=== PATIENT | female | born 1960 | race American Indian/Alaskan Native ===

== ENCOUNTER → 2018-08-19 | Outpatient (CLI) | payer OTHER ==
--- NOTE | 2018-08-19 15:45 | RADIOLOGY IMAGING REPORT ---
FACILITY: [facility] - [place] PATIENT NAME: Denny Edwards : 1960 MR: [id number] V: [id number] EXAM DATE: ORDERING PHYSICIAN: MAK PEARL TECHNOLOGIST: Location: [facility] [place] Patient: Denny Edwards : 1960 Visit/Account:[id number] Date of Sevice: 08/19/2018 2 VIEWS CHEST INDICATION: Rheumatoid arthritis. COMPARISON: None available FINDINGS: Heart size within normal limits. Calcifications within the aortic knob. There is no focal infiltrate or lobar consolidation. Mild nonspecific bronchial wall thickening. L inear scarring within the right midlung. Mild basilar atelectasis. There is no pneumothorax or pleural effusion. IMPRESSION: 1. No acute cardiopulmonary process. 2. Mild nonspecific bronchial wall thickening. Report Dictated By: Ruddy Beltran MD at 08/19/2018 3:41 PM Report E-Signed By: Ruddy Beltran MD at 08/19/2018 3:41 PM WSN:[email or web address]
[2018-08-19 15:48] LABS: PLATELET COUNT, AUTOMATED 369 K/uL (150-450)
--- NOTE | 2018-08-19 16:16 | RADIOLOGY IMAGING REPORT ---
FACILITY: [facility] - [place] PATIENT NAME: Denny Edwards : 1960 MR: [id number] V: [id number] EXAM DATE: ORDERING PHYSICIAN: MAK PEARL TECHNOLOGIST: Location: [facility] Patient: Denny Edwards : 1960 Visit/Account:[id number] Date of Sevice: 08/19/2018 Study: FOOT 2 VIEW BILATERAL Indication: Rheumatoid arthritis Comparison study: None available Findings: AP and lateral views of both feet demonstrates the presence of subluxation of the first sec ond and third metatarsal-phalangeal joints of the right foot. There is no evidence of acute fracture. There is no evidence of lytic or blastic bony lesions. There is no evidence of subluxation of the metatarsophalangeal joints of the left foot. The visualized soft tissues are unremarkable. There is no evidence of erosive arthropathy. IMPRESSION: Subluxation of the first second and third right sided metatarsal phalangeal joints, other hankins unremarkable. Report Dictated By: Aidan Torrez at 08/19/2018 4:10 PM Report E-Signed By: Aidan Torrez at 08/19/2018 4:11 PM WSN:[id number]
--- NOTE | 2018-08-19 16:17 | RADIOLOGY IMAGING REPORT ---
FACILITY: PATIENT NAME: Denny Edwards : 1960 MR: [id number] V: [id number] EXAM DATE: ORDERING PHYSICIAN: MAK PEARL TECHNOLOGIST: Location: [facility] Patient: Denny Edwards : 1960 Visit/Account:[id number] Date of Sevice: 08/19/2018 Study: HAND 1 OR 2 VIEW BILATERAL Indication: Rheumatoid arthritis Comparison study: None available Findings: AP and lateral views of both the left and right hands demonstrates no evidence of acute bon y abnormality within either hand. There is no evidence of significant arthropathy within either hand. The visualized soft tissues are unremarkable. There is no evidence of lytic or blastic bony lesions. IMPRESSION: Unremarkable exam Report Dictated By: Aidan Torrez at 08/19/2018 4:12 PM Report E-Signed By: Aidan Torrez at 08/19/2018 4:12 PM WSN:[id number]
== END ==
LOC: RAD 15:00
PROVIDERS: ATTEND Physician Assistant
DX: M79.641 Pain in right hand (principal); M79.671 Pain in right foot; R05 Cough; Z79.899 Other long term (current) drug therapy; M06.9 Rheumatoid arthritis, unspecified
CPT/HCPCS: 36415; 71046; 82565; 84450; 85025; 85651; 86803; 87340

== ENCOUNTER → 2018-09-27 | Outpatient (CLI) | payer OTHER ==
[2018-09-27 14:44] LABS: PLATELET COUNT, AUTOMATED 412 K/uL (150-450)
== END ==
LOC: LAB 13:59
PROVIDERS: ATTEND Physician Assistant
DX: Z79.899 Other long term (current) drug therapy (principal); M06.9 Rheumatoid arthritis, unspecified
CPT/HCPCS: 36415; 82565; 84450; 85025; 85651

== ENCOUNTER → 2019-06-01 | Outpatient (CLI) | payer OTHER ==
[2019-06-01 09:12] LABS: PLATELET COUNT, AUTOMATED 347 K/uL (150-450)
== END ==
LOC: LAB 08:51
PROVIDERS: ATTEND Physician Assistant
DX: Z79.899 Other long term (current) drug therapy (principal)
CPT/HCPCS: 36415; 82040; 82247; 82310; 82374; 82435; 82565; 82947; 84075; 84132; 84155; 84295; 84450; 84460; 84520; 85025; 85651